=== PATIENT | female | born 1970 | race Caucasian/White ===

== ENCOUNTER 2018-05-14 21:21 | Emergency (ER) | payer OTHER ==
[~2018-05-14] VITALS: Ht 162.6 cm; Wt 72.6 kg
[2018-05-14] MEDS ORDERED: LISINOPRIL20 MG (21:31)
[2018-05-14] MEDS ORDERED: CLONAZEPAM0.25 MG (21:31)
== END 2018-05-15 00:40 | disposition home or self-care (01) ==
LOC: ER 21:21
DX: R00.2 Palpitations (principal)